=== PATIENT | male | born 1980 | race Hispanic/Latino ===

== ENCOUNTER 2017-09-08 19:56 | Emergency (ER) | payer MEDICARE | END 2017-09-08 21:38 | disposition home or self-care (01) | LOC: EDH 19:56 | DX: S09.8XXA Other specified injuries of head, initial encounter (principal); I50.9 Heart failure, unspecified; Z98.84 Bariatric surgery status; W22.8XXA Striking against or struck by other objects, initial encounter; Y93.89 Activity, other specified; Y92.810 Car as the place of occurrence of the external cause; Y99.8 Other external cause status | CPT/HCPCS: 70450 ==

== ENCOUNTER 2024-05-04 10:19 | Emergency (ER) | payer MEDICARE ==
[~2024-05-04] VITALS: Ht 167.6 cm; Wt 124.3 kg
[~2024-05-04 10:19] MED LIST: ASPI-1197 PO; ATOR40TA69 PO; CHOL50002 PO; CLOP-31 PO; DAPA10TA PO; ENOX40DI9 SQ; FAMO20TA8 PO; FOLI0.8T53 PO; MONT-39 PO; NIFE-40 PO
[2024-05-04 10:59] LABS: RAPID GROUP A STREP negative (NEGATIVE)
[2024-05-04 11:02] LABS: SARS-CoV-2, RNA, NAAT NEGATIVE SARS CoV-2 (NEGATIVE)
--- NOTE | 2024-05-04 11:07 | ERN ---
General Chief Complaint: Fever Stated Complaint: FEVER Time Seen by MD: 10:24 Time Seen by Midlevel: 10:24 Source: patient History of Present Illness Initial Comments The patient is a morbidly obese 44-year-old male with a past medical history of type 2 diabetes, congestive heart failure, hyperlipidemia, and hypertension presenting to the emergency department for evaluation of fever that has been intermittent in nature for the last two days. Patient has been taking Tylenol and Motrin with relief. He specifically denies any nasal congestion, cough, shortness of breath, chest pain, or any other symptoms at this time. Denies any sick contacts Allergies: Coded Allergies: Penicillins (Unverified Allergy, Severe, 10/09/23) Home Meds Reported Medications Nifedipine (Nifedipine ER) 30 Mg Tab.er.24, 30 MG PO BID 10/13/23 Folic Acid/Vit B Complex and C (Nephro Vitamins Tablet) 0.8 Mg Tablet, 0.8 MG PO DAILY, TAB 10/13/23 Famotidine (Famotidine) 20 Mg Tablet, 20 MG PO BID, TAB 10/13/23 Enoxaparin Sodium (Enoxaparin Sodium) 40 Mg/0.4 Ml Disp.syrin, 40 MG SQ DAILY, DIS.SYR 10/13/23 Clopidogrel Bisulfate (Plavix) 75 Mg Tablet, 75 MG PO DAILY, TAB 10/13/23 Atorvastatin Calcium (LIPITOR) 40 Mg Tablet, 40 MG PO HS, TAB 10/13/23 Cholecalciferol (Vitamin D3) (D3-50) 1,250 Mcg (14951 Unit) Capsule, 62540 UNIT PO AD, CAP 10/10/23 Aspirin (Aspirin) 81 Mg Tab.chew, 81 MG PO DAILY, TAB.CHEW 10/10/23 Dapagliflozin Propanediol (Farxiga) 10 Mg Tablet, 10 MG PO DAILY, TAB 10/10/23 Montelukast Sodium (Montelukast Sodium) 10 Mg Tablet, 10 MG PO HS, TAB 10/10/23 Past Medical History Past Medical History: CHF, Diabetes-Type II, High Cholesterol, Hypertension, Lung Disease Past Surgical History: Other Surgical History Other: gall bladder removal Social History Social History: Negative ROS Dictation CONSTITUTIONAL: Negative except for HPI HEAD/FACE: Negative except for HPI EENT: Negative except for HPI RESPIRATORY: Negative except for HPI GASTROINTESTINAL/ABDOMINAL: Negative except for HPI GENITOURINARY: Negative except for HPI MUSCULOSKELETAL: Negative except for HPI INTEGUMENTARY: Negative except for HPI NEUROLOGICAL/PSYCH: Negative except for HPI HEMATOLOGIC/LYMPHATIC: Negative except for HPI All Systems Negative, Except as noted above. 13 point review of systems assessed and all negative except for above. Physical Exam Physical Exam Dictation Vital Signs reviewed General Appearance: Alert, oriented x 3, no acute distress, well developed, nourished. Head and Face: non-traumatic. Eyes: PERRL, pink conjunctivas, eyelid no trauma, anterior chamber with arcus senilis. Ears: Pinnas intact and no signs of trauma or erythema ear canals clear and no discharge TM no erythema Nose: No discharge, no bleeding. Oropharynx: Mouth normal, tongue pink, pharynx clear,no erythema, tonsils no exudates, no abscesses noted, mucous membrane moist Neck: Supple, non-tender, no thyromegaly, no masses, no JVD, no bruits Breast:Deferred Chest:No tenderness, no crepitus, no paradoxical movement, no retractions Lungs:Clear, well-ventilated, symmetric, no rales, no wheezing, no rhonchi, no stridor, good breath sounds bilaterally Heart: Regular rate, regular rhythm, no murmur, no gallops Vascular: no peripheral edema, Abdomen: Soft, positive bowel sounds, nondistended, no guarding, nontender, no rebound, no masses no hepatomegaly, no splenomegaly, no Estes's sign, no hernias. Rectal: Deferred Genital: Deferred Neurological: Normal speech, motor function intact, sensory function intact Musculoskeletal: Neck nontender, full range of motion, back nontender, full range of motion, Extremities: nontender, full range of motion Skin: Color pink, dry, no turgor, no rash, no lacerations, no abrasions, no contusions. Lymphatic: Deferred Results Laboratory and Microbiology Lab and Micro Result Laboratory Tests Test 05/04/24 10:39 05/04/24 10:50 05/04/24 11:50 Influenza Type A Antigen Negative For Type A Influenza Type B Antigen Negative For Type B SARS-CoV-2, RNA, NAAT NEGATIVE SARS CoV-2 Group A Streptococcus Rapid negative (NEGATIVE) White Blood Count 10.8 K/uL (4.8-10.8) Red Blood Count 5.80 MIL/uL (4.50-6.20) Hemoglobin 15.1 g/dL (14.0-18.0) Hematocrit 49.9 % (42-54) Mean Corpuscular Volume 86.0 fL (79-99) Mean Corpuscular Hemoglobin 26.0 pg (27.0-33.0) L Mean Corpuscular Hemoglobin Concent 30.3 g/dL (32.0-36.0) L Red Cell Distribution Width 13.4 % (11.0-15.5) Platelet Count 217 K/uL (130-400) Mean Platelet Volume 10.6 fL (7.5-10.5) H Immature Granulocyte % (Auto) 0.3 % (0-1) Neutrophils (%) (Auto) 79.9 % (40.0-77.0) H Lymphocytes (%) (Auto) 12.1 % (21.0-51.0) L Monocytes (%) (Auto) 7.0 % (3.0-13.0) Eosinophils (%) (Auto) 0.3 % (0.0-8.0) Basophils (%) (Auto) 0.4 % (0.0-5.0) Neutrophils # (Auto) 8.6 K/uL (1.8-7.7) H Lymphocytes # (Auto) 1.3 K/uL (1.0-4.8) Monocytes # (Auto) 0.8 K/uL (0.1-1.0) Eosinophils # (Auto) 0.03 K/uL (0.00-0.70) Basophils # (Auto) 0.04 K/uL (0.00-0.20) Absolute Immature Granulocyte (auto 0.03 K/uL (0-1) Nucleated Red Blood Cells 0.0 % (0.0-0.19) Red Blood Cell Morphology See comments Sodium Level 137 mmol/L (136-145) Potassium Level 5.3 mmol/L (3.5-5.1) H Chloride Level 104 mmol/L (101-111) Carbon Dioxide Level 26 mmol/L (21-32) Blood Urea Nitrogen 32 mg/dL (7-18) H Creatinine 2.2 mg/dL (0.5-1.3) H Glomerular Filtration Rate Calc 36 mL/min (>90) Random Glucose 132 mg/dL (70-105) H Total Calcium 9.1 mg/dL (8.5-10.1) Urine Color LIGHT-YELLOW (YELLOW) Urine Appearance CLEAR (CLEAR) Urine pH 6.0 (5.0-8.0) Urine Specific [place] 1.014 (1.001-1.031) Urine Protein 300 mg/dL (NEGATIVE) H Urine Glucose (UA) >=1000 mg/dL (NEGATIVE) H Urine Ketones NEGATIVE mg/dL (NEGATIVE) Urine Occult Blood +- (TRACE) (NEGATIVE) H Urine Nitrate NEGATIVE (NEGATIVE) Urine Bilirubin NEGATIVE mg/dL (NEGATIVE) Urine Urobilinogen 0.2 mg/dL (0.2-1.0) Urine Leukocyte Esterase NEGATIVE Sandra/uL Urine RBC 0-1 /HPF (0-1) Urine WBC 2-5 /HPF (0-1) H Urine Squamous Epithelial Cells RARE /HPF (0-2) Urine Bacteria FEW /HPF (None Seen) Urine Hyaline Casts 2-5 /LPF (0-1 /LPF) H Labs Reviewed?: Yes MDM MDM: The patient is a morbidly obese 44-year-old male with a past medical h istory of type 2 diabetes, congestive heart failure, hyperlipidemia, and hypertension presenting to the emergency department for evaluation of fever that has been intermittent in nature for the last two days. Patient has been taking Tylenol and Motrin with relief. He specifically denies any nasal congestion, cough, shortness of breath, chest pain, or any other symptoms at this time. Denies any sick contacts. On physical examination patient is in no acute distress. Initial vital signs are stable. Patient was afebrile and nontoxic appearing. His CBC shows a normal white blood cell count of 10.8. Platelet counts are normal at 217. Chemistries reveal an elevated BUN at 32 and an elevated creatinine at 2.2 however when compared to previous kidney function patient was at his baseline. His potassium is slightly elevated at 5.3. The patient was given Lokelma in the emergency department. Offered admission for observation with the patient declined and would like to be discharged home. His respiratory swabs are negative. His urinalysis does not show any evidence of infection. Patient is specifically denies any dysuria, hematuria, shortness of breath, cough, or any other symptoms at this time. The patient will be discharged home. The patient has been afebrile during his entire ER visit. There are no signs of infection at this time patient will need to follow up with his primary care doctor outpatient. Differential diagnosis: Viral syndrome, upper respiratory infection, urinary tract infection There are no social concerns with this patient. Prescription drug management Prescriptions will include: None Medical management and examination interpretation discussions were had by me with other qualified healthcare professionals as indicated for the patient's care. ED Course Orders Procedure Category Date Status Time Cbc With Differential LAB 05/04/24 Complete 10:35 Basic Metabolic Panel LAB 05/04/24 Complete 10:35 Covid Rna Naat LAB 05/04/24 Complete 10:35 Influenza Type A & B, LAB 05/04/24 Complete Rapid 10:35 Rapid (Group A Strep) LAB 05/04/24 Complete 10:35 Urinalysis Profile LAB 05/04/24 Complete 11:06 12 Lead Ekg Tracing- EKG 05/04/24 Resulted Technical 12:48 Sodium Zirconium PHA 05/04/24 Complete Cyclosilicate 13:30 Current Medications Medications (Trade) Dose Ordered Sig/Jia Route PRN Reason Start Time Stop Time Status Last Admin Dose Admin Sodium Zirconium Cyclosilicate (Lokelma) 5 gm ONCE ONCE PO 05/04/24 13:30 05/04/24 13:24 DC 05/04/24 13:05 Vital Signs Date Time Temp Pulse Resp B/P (MAP) Pulse Ox O2 Delivery O2 Flow Rate FiO2 05/04/24 13:11 97.9 80 20 131/79 99 Room Air* 0 21 05/04/24 11:50 97.9 82 20 139/83 99 Room Air* 0 21 05/04/24 10:31 97.9 82 20 139/83 99 Room Air DX & DISP Disposition: Discharge Departure Impression: Primary Impression: Subjective fever Additional Impression: Hyperkalemia Condition: Stable Additional Instructions: Your blood work today shows no evidence of infection. Your kidney function appears to be at baseline. There was a slight elevation in your potassium level. You were given medication in the emergency department to lower your potassium level. If you develop any chest pain, shortness of breath, or any other symptoms please report to the ER for further evaluation. Please keep appointment with your primary care doctor as scheduled. Your EKG does not show any cardiac arrhythmia or evidence of a heart attack. Referrals: [facility] (PCP) I have reviewed the case, and I agree with, Diagnosis and Plan I performed the substantive portion of the visit. I have reviewed and personally made and approve the management plan that is documented in the note by myself or the IGOR. I acknowledge for responsibility for the patient's management plan. FELIPE CORTEZ May 04, 2024 11:07
[2024-05-04 11:09] LABS: INFLUENZA TYPE A Negative For Type A (NEGATIVE); INFLUENZA TYPE B Negative For Type B (NEGATIVE)
[2024-05-04 11:09] LABS: CREATININE 2.2 mg/dL (0.5-1.3); POTASSIUM 5.3 mmol/L (3.5-5.1)
[2024-05-04 11:19] LABS: BASOPHILS # (AUTO) 0.04 K/uL (0.00-0.20); BASOPHILS % (AUTO) 0.4 % (0.0-5.0); EOSINOPHILS # (AUTO) 0.03 K/uL (0.00-0.70); EOSINOPHILS % (AUTO) 0.3 % (0.0-8.0); HEMATOCRIT 49.9 % (42-54); IMMATURE GRANULOCYTE ABSOLUTE 0.03 K/uL (0-1); LYMPHOCYTES # (AUTO) 1.3 K/uL (1.0-4.8); LYMPHOCYTES % (AUTO) 12.1 % (21.0-51.0); MEAN CORPUSCULAR HGB CONC 30.3 g/dL (32.0-36.0); MONOCYTES # (AUTO) 0.8 K/uL (0.1-1.0); NEUTROPHILS # (AUTO) 8.6 K/uL (1.8-7.7); NEUTROPHILS % (AUTO) 79.9 % (40.0-77.0); PLATELET COUNT (AUTO) 217 K/uL (130-400); RED CELL DISTRIBUTION WIDTH 13.4 % (11.0-15.5); WHITE BLOOD COUNT (AUTO) 10.8 K/uL (4.8-10.8)
[2024-05-04 12:32] LABS: APPEARANCE,URINE CLEAR (CLEAR); BILIRUBIN,URINE NEGATIVE (NEGATIVE); COLOR,URINE LIGHT-YELLOW (YELLOW); GLUCOSE, URINE (UA) >=1000 mg/dL (NEGATIVE); KETONES,URINE NEGATIVE (NEGATIVE); LEUKOCYTE ESTERASE ,URINE NEGATIVE Leu/uL (NEGATIVE); NITRATE,URINE NEGATIVE (NEGATIVE); PROTEIN,URINE 300 mg/dL (NEGATIVE); UROBILINOGEN,URINE 0.2 mg/dL (0.2-1.0)
[2024-05-04 12:33] LABS: ADD UA MICROSCOPIC YES
[2024-05-04 12:45] LABS: BACTERIA,URINE FEW /HPF (None Seen); MUCUS,URINE RARE LPF (None Seen); RBC,URINE 0-1 /HPF (0-1); SQUAMOUS EPITHELIAL CELL,UR RARE /HPF (0-2)
[2024-05-04] MEDS: SODIUM ZIRCONIUM CYCLOSILICATE 5 GM POWD.PACK PO ONE (13:05)
[2024-05-04 13:11] VITALS: BP 131/79; PULSE 80; RESP 20; TEMP 97.9; O2SAT 99
--- NOTE | 2024-05-04 13:14 | EKG ---
[facility] Test Date: 2024-05-04 Test Time: 12:48:53 Pat Name: JENNIFER SAMPSON Department: [facility] Room: Gender: M [employer]: [id number] : 1980 Requested By: FELIPE CORTEZ Order Number: [id number] Reading MD: Harry Sánchez Measurements Intervals Solo Rate: 76 P: 19 FL: 171 QRS: 161 QRSD: 117 T: 19 QT: 378 QTc: 426 Interpretive Statements Sinus rhythm Nonspecific intraventricular conduction delay Consider anterior infarct Compared to ECG 10/09/2023 08:23:06 Intraventricular conduction delay now present Left posterior fascicular block no longer present Incomplete right bundle-branch block no longer present Myocardial infarct finding still present Electronically Signed On 05-04-2024 17:45:16 [employer]IOR DESIGN PROJECT MANAGER by Harry Sánchez Please click the below link to view image of tracing.
== END 2024-05-04 13:24 | disposition home or self-care (01) ==
LOC: EDH 10:19
DX: R50.9 Fever, unspecified (principal); E87.5 Hyperkalemia; E11.9 Type 2 diabetes mellitus without complications; E66.01 Morbid (severe) obesity due to excess calories; E78.00 Pure hypercholesterolemia, unspecified; I11.0 Hypertensive heart disease with heart failure; I50.9 Heart failure, unspecified; Z79.02 Long term (current) use of antithrombotics/antiplatelets; Z79.82 Long term (current) use of aspirin; Z79.84 Long term (current) use of oral hypoglycemic drugs; Z79.899 Other long term (current) drug therapy; Z88.0 Allergy status to penicillin; Z20.822 Contact with and (suspected) exposure to COVID-19
CPT/HCPCS: 36415; 80048; 81001; 85025; 87635; 87804; 87880; 93005; 99284

== ENCOUNTER 2024-07-06 07:37 | Day surgery (SDC) | payer MEDICARE ==
[~2024-07-06] VITALS: Ht 167.6 cm; Wt 122.5 kg
[2024-07-06] VITALS (11 sets, daily range): BP systolic 117–151; BP diastolic 71–96; PULSE 72–85; RESP 15–18; TEMP 97.5–98
[~2024-07-06 07:37] MED LIST changes: +0.9%NACL 1000ML 1,000 ML IV ONE; -ATOR40TA69 PO; -CHOL50002 PO; -CLOP-31 PO; -DAPA10TA PO; +DICY20TA3 PO; -ENOX40DI9 SQ; -FAMO20TA8 PO; +FLUT1BLS15 IH; -FOLI0.8T53 PO; +GABA300C PO; +GLIP-300 PO; +HYDR12.54 PO; +LISI20TA24 PO; -NIFE-40 PO; +PRAV40TA62 PO; +SEMA2PEN SQ; +VITAD50000 PO
[2024-07-06] MEDS: ALBUTEROL 0.083% 2.5 MG/3 ML INH IH ONE ×2 (08:33)
[2024-07-06] MEDS: IpraTROPium/alBUTERol SULFATE 3 ML SOLUTION IH ONE (08:33)
[2024-07-06] MEDS ORDERED: proPOFol 10 MG/ML 20ML VIAL IV ONE (09:49)
[2024-07-06] MEDS ORDERED: LIDOCAINE PF 100MG/5ML (2%) SYRINGE 5ML ONE (09:49)
== END 2024-07-06 11:10 | disposition home or self-care (01) ==
LOC: SUH 07:37 → DAH 07:37 → SUH 11:10
PROVIDERS: ATTEND Internal Medicine
DX: R10.13 Epigastric pain (principal); K22.89 Other specified disease of esophagus; R14.0 Abdominal distension (gaseous); K29.70 Gastritis, unspecified, without bleeding; K31.89 Other diseases of stomach and duodenum; I11.0 Hypertensive heart disease with heart failure; I50.9 Heart failure, unspecified; J45.909 Unspecified asthma, uncomplicated; G47.33 Obstructive sleep apnea (adult) (pediatric); E78.5 Hyperlipidemia, unspecified; Z88.0 Allergy status to penicillin; Z90.49 Acquired absence of other specified parts of digestive tract; Z90.89 Acquired absence of other organs; Z68.41 Body mass index [BMI] 40.0-44.9, adult; E66.01 Morbid (severe) obesity due to excess calories; Z79.82 Long term (current) use of aspirin; Z98.84 Bariatric surgery status; Z79.899 Other long term (current) drug therapy
CPT/HCPCS: 43245; 82948 ×2; 43239; 94640; J7030 ×2; J2003; J2704; C1726; A4620; A4215; A4223; A7002; A4222; A4221; A4663; A4606; J3490